=== PATIENT | male | born 1965 | race Caucasian/White ===

== ENCOUNTER 2016-10-01 08:55 | Outpatient (CLI) ==
--- NOTE | 2016-10-08 07:56 | HOLTER ---
PATIENT INFORMATION AND COMMENTS Indications: IRREGULAR HEART RATE __ Patient Medications: ALLOPURINOL __ Pre-procedure Summary: Protocol: Standard Heart Rate Started: 10/01/16913 Minimum: 42 Weight: 216 LBS Ended: 10/02/16913 Maximum: 136 Height: 72" Duration: 17 HRS Average: 64 _ INTERPRETATIONS/OBSERVATIONS: 1. BASIC RHYTHM: SINUS, RATE 42/MINUTE TO 100/MINUTE, AVERAGE 64/MINUTE 2. RARE TO INFREQUENT PAC'S AND PVC'S 3. NO ST-T WAVE CHANGES 4. ACTIVITY LOG NOT MAINTAINED HOLTER MONITORED FOR 17 HOURS [facility]
== END 2016-10-01 08:56 | disposition home or self-care (01) ==
LOC: CAR 08:55
PROVIDERS: ATTEND Nurse Practitioner Family
DX: I49.9 Cardiac arrhythmia, unspecified (principal); I49.3 Ventricular premature depolarization

== ENCOUNTER 2016-12-28 09:57 | Outpatient (CLI) ==
--- NOTE | 2016-12-28 11:01 | DI ---
EXAM: Two views of the left calcaneus. History: Left foot pain. Findings: No acute fracture or dislocation. Minimal enthesiopathy at the insertion of the Achilles tendon. Joint spaces are relatively preserved. Impression: No acute osseous abnormality. Minimal enthesiopathy at the insertion of the Achilles t endon.
== END 2016-12-28 09:58 | disposition home or self-care (01) ==
LOC: RAD 09:57
PROVIDERS: ATTEND Nurse Practitioner Family
DX: M79.672 Pain in left foot (principal); S99.922A Unspecified injury of left foot, initial encounter

== ENCOUNTER 2017-01-01 07:06 | Outpatient (CLI) ==
--- NOTE | 2017-01-01 13:04 | MRI ---
EXAM: MRI of the left lower extremity without contrast COMPARISON: Left calcaneus radiographs 12/28/2016. HISTORY: Hit the heel on a palate 12/22/2016 with pain and swelling. Enthesopathy. TECHNIQUE: Multiplanar noncontrast MR images of the left ankle/hind-foot were acquired using a 1.5 Ana magnet. FINDINGS: Mild degenerative spurring throughout the ankle/hind-foot with most pronounced osteophyte s dorsally at the talonavicular joint. No evidence of an acute fracture or osteomyelitis. The fanny r dome is intact. Small tibiotalar, talonavicular and subtalar joint effusions which are nonspecifi c. There is minimal Achilles tendinosis and peritendinitis without a tendon tear. 2 mm retrocalcaneal spur. 2 mm plantar calcaneal spur with minimal inflammation of the proximal portion of the plantar fascia without fascial rupture. Mild diffuse muscle atrophy. The anterior tibial, extensor hallicus longus and extensor digitorum tendons are intact. Moderate p osterior tibial tendinosis from the level of the medial malleolus through the navicular tuberosity w ith trace tenosynovitis. No full-thickness tendon tear or tendon retraction. There is low-level john ctive marrow edema within the calcaneal tuberosity at the attachment the Achilles tendon without an avulsion fracture. The flexor digitorum and flexor hallicus longus tendons are intact. Mild peroneu s longus/brevis tendinosis and tenosynovitis with thinning/flattening of the peroneus brevis from th e lateral malleolus through the peroneal tubercle related to a partial/split tear. Thickening/scarring of the anterior tibiofibular ligament related to a chronic sprain with intact fi bers identified. No abnormal widening of the syndesmosis. Thinning of the anterior talofibular lig ament related to a a partial tear with scarring with some thin residual intact fibers identified. S purring of the fibular attachment ligament. Sprain/partial tear of the calcaneofibular ligament as well as sprains with scarring of the posterior talofibular and deltoid ligaments. Subcutaneous poonam a most pronounced posteriorly and laterally without a drainable fluid collection. IMPRESSION: 1. Mild Achilles tendinosis and peritendinitis with enthesopathy without a tendon tear. Low-level reactive marrow edema involving the calcaneal attachment of the tendon without an avulsion fracture. 2. Mild changes of plantar fasciitis without fascial rupture. 3. Mild degenerative changes. Small joint effusions which are nonspecific. 4. Moderate posterior tibial tendinosis with minimal tenosynovitis. No full-thickness tendon tear or tendon retraction. Peroneus longus/brevis tendinosis and tenosynovitis with partial/split tear o f the peroneus brevis. 5. Subcutaneous edema most pronounced posteriorly and laterally. 6. Sprain/partial tear of the anterior talofibular and calcaneofibular ligaments. Sprains with sca rring of the posterior talofibular, anterior tibiofibular and deltoid ligaments.
== END 2017-01-01 07:07 | disposition home or self-care (01) ==
LOC: RAD 07:06
PROVIDERS: ATTEND Nurse Practitioner Family
DX: M77.9 Enthesopathy, unspecified (principal); M79.672 Pain in left foot; S86.002A Unspecified injury of left Achilles tendon, initial encounter

== ENCOUNTER 2017-03-26 08:15 | Outpatient (RCR) ==
--- NOTE | 2017-03-04 15:32 | RS.OPPTEV2 ---
Date of Note: 02/28/17 Visit #: 1 Date of Evaluation: 02/28/17 Payer Source: Medicaid Treatment Diagnosis: Left ankle pain, ankle stiffness, weakness History of Condition/Mechanism of Injury:: Patient reports the first part of November 2016, he backed into a pallet and hurt the back of his ankle. States it continued to hurt, which led him to have tests and then was referred to an Orthopaedic, who found the Achilles tendon to be inflammed. He as put in a CAM boot for a month, and has now been sent for Physical Therapy. Prior Level of Function.....Patient was independent with: ADL's, Self Care, Work /Vocation, Caregiving, Ambulation/Mobility, Community Integration/Access Functional Limitations: Standing, Squatting, Ambulation, Community Access/ Integration Current Subjective/complaints:: Patient reports left ankle pain is much better since wearing the boot for a month. States he is not having much pain now. States he is not confident to run. He tried running on a basketball court and could tell that he was not ready. States he has minimal left ankle pain with walking. States he has not iced the ankle in a few weeks. He has also had prostate surgery and is to return to work in a week. He works at [employer] and his job consists of being up and down on his feet. Treatment Side (optional): Left Medical History Surgical History Comments:: Recent prostate surgery due to prostate cancer Smoking Status: Never smoker Hx Home Medications: Ibuprofen, Allopuronol daily Patient's Goals: His goal is to return to his prior level of function. Pain Assessment - Pain Description Pain Location: left ankle Current Pain Intensity: 1/10 Worst Pain Intensity: 9/10 Functional Outcome Measure LE Functional Scale: 52 (52/80=35% impairment) - G Codes & Severity Modifier G Codes & Modifier: NA Source of G Code score: NA Observation - Observation Girth Measurement Lower: Malleoli: left 27.25 cm, right 28 cm. Metheads: left 25 cm, right 26 cm Gait - Gait Pattern Gait Comments: Patient ambulates without an assistive device with decreased stance on the left LE. Demonstrates decreased heelstrike on the left LE. - Left Ankle ROM Left DF with Knee extension: neutral Comments: Left inversion is very limited compared to the right ankle. All else is WFL's - Right Ankle ROM Right DF with Knee extension: 15 degrees - Left Ankle Strength Left Dorsiflexion: 4+ Good + Left Plantar flexion: 4+ Good + Left Eversion: 4 Good Left Inversion: 4 Good Comments: Reports no pain during MMT. - Right Ankle Strength Right Dorsiflexion: 5 Normal Right Plantarflexion: 5 Normal Right Eversion: 5 Normal Right Inversion: 5 Normal Palpation Comments:: Reports no specific area of tenderness reported with palpation throughout the left ankle and foot. Sensation - Sensation Right Lower Extremity: Intact/Normal Left Lower Extremity: Intact/Normal Interventions - Exercise/Activities/Manual Therapy Exercises/Activities: Patient instructed in stretching to plantar fascia, heelcord, and also instructed in alphabet exercises for HEP. Manual Therapy: NA HOME EXERCISE PROGRAM: stretching to plantar fascia, heelcord, and also instructed in alphabet exercises - Charges Total Direct Minutes: 50 mins Total Treatment Time: 50 mins Procedures billed for this date of service:: Yolie Low X 2, Ex Assessment Assessment: Patient presents to therapy with a diagnosis of Achilles tendinitis of the left LE. He demonstrates limited left ankle DF due to decreased flexibility and decreased inversion due to joint hypomobility. Demonstrates weakness throughout the left ankle. He has minimal left ankle pain with walking. He returns to work next week and has to be on his feet most of the time. He will benefit from stretching to improve joint mobility and strengthening for joint stability to return him to his previous level of function. Patient Education: Education of diagnosis, Body/Joint mechanics, Home Exercise Program, Home Safety, Activity Modification, Education of Plan of Care Rehab Potential: Good Short Term Goals Goal #1: Patient independent in basic HEP. Goal to be met by: 03/18/17 Goal #2: Left ankle strength 4+/5 throughout. Goal to be met by: 03/18/17 Goal #3: Left ankle DF to 10 degrees. 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 Goal to be met by: 04/13/17 Goal #2: Score on LE functional scale improved to 70/80. Goal to be met by: 04/13/17 Goal #3: Pt able to ambulate community distances without discomfort. Goal to be met by: 04/13/17 Goal #4: Pt able to return to recreational activities w/o pain or difficulty. Goal to be met by: 04/13/17 Plan - Treatment to be Provided Procedures: Therapeutic Exercises, Therapeutic Activity, Neuromuscular Rehab, Patient Education Modalities: Electrical Stimulation, Ultrasound/Phonophoresis, Cryotherapy, Hot Packs Other:: Modalities if necessary for pain/swelling. - Treatment Plan Frequency: 3 X week Duration: 4 weeks ORDER # VISITS AND/OR THROUGH DATE: 04/13/17 - Treatment Code (1) Ankle pain Qualifiers: Chronicity: acute Laterality: left Qualified Description: Acute left ankle pain Qualifier Code(s): (M25.572) Pain in left ankle and joints of left foot (2) Ankle weakness Comments: Left ankle weakness M62.81 (3) Achilles tendinitis Qualifiers: Laterality: left Qualified Description: Achilles tendinitis of left lower extremity Qualifier Code(s): (M76.62) Achilles tendinitis, left leg
--- NOTE | 2017-03-05 09:44 | RS.OPPTDN ---
Subjective Date of Note: 03/05/17 Date of Evaluation: 02/28/17 Payer Source: Medicaid Treatment Diagnosis: Left ankle pain, ankle stiffness, weakness Current Subjective/complaints:: Patient reports doing initial stretching and pain is a little better. Pain Assessment - Pain Description Pain Location: left ankle Current Pain Intensity: mild Other Comments regarding Pain:: Reports pain is better following HP and EX. - Heat/Cryotherapy Treatment: Hot Pack ([id number] to the left achilles tendon prior to EX. Patient in sitting. ) Interventions - Exercise/Activities/Manual Therapy Exercises/Activities: Patient instructed in stretching to plantar fascia and heelcords. Active ROM in straight planes and circles cw and ccw. Isometric left ankle pf, inv, and eversion, multiple reps. Green theraband for resistive df, inversion, and eversion, multiple reps. Standing gastroc and soleus stretching. Reviewed dx, mechanics, and HEP. Patient given green theraband and copies of new exercises. Total minutes of Exercise: 25mins Manual Therapy: NA HOME EXERCISE PROGRAM: stretching to plantar fascia, heelcord, and also instructed in alphabet exercises - Charges Total Direct Minutes: 25mins Total Treatment Time: 45mins Procedures billed for this date of service:: HP, EX2 Assessment: Patient reponds to HP and stretching EX. Patient appears motivated to EX and progress. Patient Education: Education of diagnosis, Body/Joint mechanics, Home Exercise Program, Activity Modification Patient demonstrates compliance with HEP?: Yes Short Term Goals Goal #1: Patient independent in basic HEP. Goal to be met by: 03/18/17 Progress towards Goal:: Progressing Goal #2: Left ankle strength 4+/5 throughout. Goal to be met by: 03/18/17 Goal #3: Left ankle DF to 10 degrees. Goal to be met by: 03/18/17 Progress towards Goal:: Progressing Senior Care Goals Goal #1: Pt knows HEP and to continue ex's to maintain functional level at D/C. Goal to be met by: 04/13/17 Progress towards goal: Progressing Goal #2: Score on LE functional scale improved to 70/80. Goal to be met by: 04/13/17 Goal #3: Pt able to ambulate community distances without discomfort. Goal to be met by: 04/13/17 Progress towards goal: Progressing Goal #4: Pt able to return to recreational activities w/o pain or difficulty. Goal to be met by: 04/13/17 Plan PLAN OF CARE EXPIRES ON:: 04/13/17 ORDER # VISITS AND/OR THROUGH DATE: 04/13/17 PLAN: Continue Plan of Care (Continue stretching and strengthening exercise to reduce pain and increase functional ambulation.)
--- NOTE | 2017-03-08 10:59 | RS.OPPTDN ---
Subjective Date of Note: 03/08/17 Visit #: 3 Date of Evaluation: 02/28/17 Payer Source: Medicaid Treatment Diagnosis: Left ankle pain, ankle stiffness, weakness Current Subjective/complaints:: Patient reports he has been working all night, and the L foot is aching. Pain Assessment - Pain Description Pain Location: left ankle Pain Description: Dull, Aching Current Pain Intensity: 2/10 - Heat/Cryotherapy Treatment: Hot Pack (20 mins. L plantar surface, prior to exercises) Interventions - Exercise/Activities/Manual Therapy Exercises/Activities: 20 mins. plantar fascia and heelcord stretches.Isometric ankle inversion/eversion.Discussed multiple ways to stretch the plantar fascia in standing and at rest using towel,etc. Total minutes of Exercise: 20 Manual Therapy: NA Total minutes of Manual Therapy: 0 HOME EXERCISE PROGRAM: stretching to plantar fascia, heelcord, and also instructed in alphabet exercises - Charges Total Direct Minutes: 20 Total Treatment Time: 40 Procedures billed for this date of service:: hp,ex 1 Assessment: Patient tolerates stretches well,is tender to palpate the anterior surface of the heel.He is attentive to recommendations of the therapy staff regarding HEP. Patient Education: Education of diagnosis, Body/Joint mechanics, Home Exercise Program, Home Safety, Activity Modification, Education of Plan of Care Patient demonstrates compliance with HEP?: Yes Short Term Goals Goal #1: Patient independent in basic HEP. Goal to be met by: 03/18/17 Progress towards Goal:: Progressing Goal #2: Left ankle strength 4+/5 throughout. Goal to be met by: 03/18/17 Goal #3: Left ankle DF to 10 degrees. 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 Goal to be met by: 04/13/17 Progress towards goal: Progressing Goal #2: Score on LE functional scale improved to 70/80. Goal to be met by: 04/13/17 Goal #3: Pt able to ambulate community distances without discomfort. Goal to be met by: 04/13/17 Progress towards goal: Progressing Goal #4: Pt able to return to recreational activities w/o pain or difficulty. Goal to be met by: 04/13/17 Plan PLAN OF CARE EXPIRES ON:: 04/13/17 ORDER # VISITS AND/OR THROUGH DATE: 04/13/17 PLAN: Continue Plan of Care
--- NOTE | 2017-03-12 09:37 | RS.OPPTDN ---
Subjective Date of Note: 03/12/17 Visit #: 4 Date of Evaluation: 02/28/17 Payer Source: Medicaid Treatment Diagnosis: Left ankle pain, ankle stiffness, weakness Current Subjective/complaints:: Patient reports improvement in left heel pain. States pain continues to be aggravated after being on his feet long hours at work. Reports a reduction in pain following US. Pain Assessment - Pain Description Pain Location: left ankle Pain Description: Dull, Aching Current Pain Intensity: 2/10 - Treatment Modality: Ultrasound Parameters/Method Applied: [id number] at 1.5w/cm2 to the left achilles tendon to the calcaneus and to the plantar surface of the foot prior to EX. Patient Position: Sitting - Heat/Cryotherapy Treatment: Hot Pack ([id number] to the left heel prior to US and EX. Patient in supine. ) Interventions - Exercise/Activities/Manual Therapy Exercises/Activities: 14mins. plantar fascia and heelcord stretches. Isometric ankle dorsiflexion, inversion, and eversion multiple reps. Green theraband for resistive ankle dorsiflexion, inversion, and eversion 3s/10reps each. Reveiwed stretching with towel and 2 position heel cord stretch in standing. Total minutes of Exercise: 14mins Manual Therapy: NA HOME EXERCISE PROGRAM: stretching to plantar fascia, heelcord, and also instructed in alphabet exercises - Charges Total Direct Minutes: 26mins Total Treatment Time: 46mins Procedures billed for this date of service:: HP, US, EX Assessment: Patient responded well to addition of US. Patient Education: Education of diagnosis, Body/Joint mechanics, Home Exercise Program, Activity Modification Patient demonstrates compliance with HEP?: Yes Short Term Goals Goal #1: Patient independent in basic HEP. Goal to be met by: 03/18/17 (50%) Progress towards Goal:: Progressing Goal #2: Left ankle strength 4+/5 throughout. Goal to be met by: 03/18/17 (80%) Progress towards Goal:: Progressing Goal #3: Left ankle DF to 10 degrees. 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 Goal to be met by: 04/13/17 Progress towards goal: Progressing Goal #2: Score on LE functional scale improved to 70/80. Goal to be met by: 04/13/17 Goal #3: Pt able to ambulate community distances without discomfort. Goal to be met by: 04/13/17 Progress towards goal: Progressing Goal #4: Pt able to return to recreational activities w/o pain or difficulty. Goal to be met by: 04/13/17 Plan PLAN OF CARE EXPIRES ON:: 04/13/17 ORDER # VISITS AND/OR THROUGH DATE: 04/13/17 PLAN: Continue Plan of Care
--- NOTE | 2017-03-14 16:03 | RS.OPPTDN ---
Subjective Date of Note: 03/14/17 Visit #: 5 Date of Evaluation: 02/28/17 Payer Source: Medicaid Treatment Diagnosis: Left ankle pain, ankle stiffness, weakness Current Subjective/complaints:: Patient reports left heel pain is doing better. States he worked night before last and pain increased with weight-bearing but was not as bad. Reports US seems to have helped reduce pain. Pain Assessment - Pain Description Pain Location: left ankle Pain Description: Dull, Aching Current Pain Intensity: 2/10 - Treatment Modality: Ultrasound Parameters/Method Applied: [id number] at 1.5w/cm2 to the left distal achilles tendon through to insertion and along the plantar surface prior to EX. Patient Position: Sitting - Heat/Cryotherapy Treatment: Hot Pack ([id number] to the left heel prior to US and EX. patient in sitting. ) Interventions - Exercise/Activities/Manual Therapy Exercises/Activities: 12mins. plantar fascia and heelcord stretches. Isometric ankle dorsiflexion, inversion, and eversion multiple reps. Reveiwed stretching with towel, manual stretching of plantar surface, and 2 position heel cord stretch in standing. Total minutes of Exercise: 12mins Manual Therapy: NA HOME EXERCISE PROGRAM: stretching to plantar fascia, heelcord, and also instructed in alphabet exercises - Charges Total Direct Minutes: 24mins Total Treatment Time: 44mins Procedures billed for this date of service:: HP, US, EX Assessment: Patient reporting a reduction in pain and walking at work without as much increase in pain. Patient Education: Body/Joint mechanics, Home Exercise Program, Activity Modification Patient demonstrates compliance with HEP?: Yes Short Term Goals Goal #1: Patient independent in basic HEP. Goal to be met by: 03/18/17 (60%) Progress towards Goal:: Progressing Goal #2: Left ankle strength 4+/5 throughout. Goal to be met by: 03/18/17 (100%) Progress towards Goal:: Met Goal #3: Left ankle DF to 10 degrees. Goal to be met by: 03/18/17 (70%) Progress towards Goal:: Progressing Long-Term Goals Goal #1: Pt knows HEP and to continue ex's to maintain functional level at D/C. Goal to be met by: 04/13/17 Progress towards goal: Progressing Goal #2: Score on LE functional scale improved to 70/80. Goal to be met by: 04/13/17 Goal #3: Pt able to ambulate community distances without discomfort. Goal to be met by: 04/13/17 Progress towards goal: Progressing Goal #4: Pt able to return to recreational activities w/o pain or difficulty. Goal to be met by: 04/13/17 Plan PLAN OF CARE EXPIRES ON:: 04/13/17 ORDER # VISITS AND/OR THROUGH DATE: 04/13/17 PLAN: Continue Plan of Care
--- NOTE | 2017-03-19 16:11 | RS.OPPTDN ---
Subjective Date of Note: 03/19/17 Visit #: 6 Date of Evaluation: 02/28/17 Payer Source: Medicaid Treatment Diagnosis: Left ankle pain, ankle stiffness, weakness Current Subjective/complaints:: Patient reports left distal achilles/heel pain has been much better the last week at work. States pain at plantar fascia continues to be a problem with walking at work, but also seems to be some better. Pain Assessment - Pain Description Pain Location: left ankle Pain Description: Dull, Aching Current Pain Intensity: 2/10 Worst Pain Intensity: mod at plantar fascia - Treatment Modality: Ultrasound Parameters/Method Applied: [id number] at 1.5w/cm2 to the left distal achillies tendon and to the plantar fascia prior to EX. Patient in sitting. Patient Position: Sitting - Heat/Cryotherapy Treatment: Hot Pack ([id number] to the left heel and distal achilles tendon prior to US and EX. Patient in sitting. ) Interventions - Exercise/Activities/Manual Therapy Exercises/Activities: 12mins. Increased manual stretching of plantar fascia and heelcords. Isometric ankle dorsiflexion, inversion, and eversion multiple reps. Total minutes of Exercise: 12mins Manual Therapy: NA HOME EXERCISE PROGRAM: stretching to plantar fascia, heelcord, and also instructed in alphabet exercises - Charges Total Direct Minutes: 24mins Total Treatment Time: 44mins Procedures billed for this date of service:: HP, US, EX Assessment: Patient responding to treatment and able report reduction in heel cords and heel with increased walking at work. Patient Education: Home Exercise Program Patient demonstrates compliance with HEP?: Yes Short Term Goals Goal #1: Patient independent in basic HEP. Goal to be met by: 03/18/17 (70%) Progress towards Goal:: Progressing Goal #2: Left ankle strength 4+/5 throughout. Goal to be met by: 03/18/17 (100%) Progress towards Goal:: Met Goal #3: Left ankle DF to 10 degrees. Goal to be met by: 03/18/17 (70%) Progress towards Goal:: Progressing Shelter Goals Goal #1: Pt knows HEP and to continue ex's to maintain functional level at D/C. Goal to be met by: 04/13/17 Progress towards goal: Progressing Goal #2: Score on LE functional scale improved to 70/80. Goal to be met by: 04/13/17 Goal #3: Pt able to ambulate community distances without discomfort. Goal to be met by: 04/13/17 Progress towards goal: Progressing Goal #4: Pt able to return to recreational activities w/o pain or difficulty. Goal to be met by: 04/13/17 Plan PLAN OF CARE EXPIRES ON:: 04/13/17 ORDER # VISITS AND/OR THROUGH DATE: 04/13/17 PLAN: Continue Plan of Care
--- NOTE | 2017-03-21 16:27 | RS.OPPTDN ---
Subjective Date of Note: 03/21/17 Visit #: 7 Date of Evaluation: 02/28/17 Payer Source: Medicaid Treatment Diagnosis: Left ankle pain, ankle stiffness, weakness Current Subjective/complaints:: Patient reports continued improvement in left foot and heel pain. States he is doing much better at work. Pain Assessment - Pain Description Pain Location: left ankle Pain Description: Dull, Aching Current Pain Intensity: 2/10 Worst Pain Intensity: 5/10 at end of work shift Other Comments regarding Pain:: States pain was as high as 8-9/10 at end of work shift. - Treatment Modality: Ultrasound Parameters/Method Applied: [id number] at 1.5w/cm2 to the left plantar surface and distal achilles tendon down to insersion. Patient Position: Sitting - Heat/Cryotherapy Treatment: Hot Pack ([id number] to the left foot and ankle prior to US and EX. Patient in sitting. ) Interventions - Exercise/Activities/Manual Therapy Exercises/Activities: 14mins. Manual stretching of plantar fascia and heelcords. Isometric ankle dorsiflexion, inversion, and eversion multiple reps. Increased to blue theraband for resisitve ankle df, inversion, and eversion. Reviewed standing stretch at wall and at step. Total minutes of Exercise: 14mins Manual Therapy: NA HOME EXERCISE PROGRAM: stretching to plantar fascia, heelcord, and also instructed in alphabet exercises. Green and blue theraband for resistive ankle df, inv, and eversion. Isometrics. - Charges Total Direct Minutes: 26mins Total Treatment Time: 46mins Procedures billed for this date of service:: Hp, US, EX Assessment: Patient reporting a reduction in pain when on his feet at work. Patient Education: Body/Joint mechanics, Home Exercise Program, Activity Modification Patient demonstrates compliance with HEP?: Yes Short Term Goals Goal #1: Patient independent in basic HEP. Goal to be met by: 03/18/17 (80%) Progress towards Goal:: Progressing Goal #2: Left ankle strength 4+/5 throughout. Goal to be met by: 03/18/17 (100%) Progress towards Goal:: Met Goal #3: Left ankle DF to 10 degrees. Goal to be met by: 03/18/17 (80%) Progress towards Goal:: Progressing Custodial Goals Goal #1: Pt knows HEP and to continue ex's to maintain functional level at D/C. Goal to be met by: 04/13/17 Progress towards goal: Progressing Goal #2: Score on LE functional scale improved to 70/80. Goal to be met by: 04/13/17 Goal #3: Pt able to ambulate community distances without discomfort. Goal to be met by: 04/13/17 Progress towards goal: Progressing Goal #4: Pt able to return to recreational activities w/o pain or difficulty. Goal to be met by: 04/13/17 Plan PLAN OF CARE EXPIRES ON:: 04/13/17 ORDER # VISITS AND/OR THROUGH DATE: 04/13/17 PLAN: Continue Plan of Care
--- NOTE | 2017-03-25 10:19 | RS.OPPTDN ---
Subjective Date of Note: 03/25/17 Visit #: 8 Date of Evaluation: 02/28/17 Payer Source: Medicaid Treatment Diagnosis: Left ankle pain, ankle stiffness, weakness Current Subjective/complaints:: Patient reports continued progress with left heel and foot pain. Reports able to do more walking at work without aggravating foot pain. Reports soreness along the anterior tibialis, but pain at the insertion of the achilles tendon has nearly resolved. Pain Assessment - Pain Description Pain Location: left ankle Pain Description: Dull, Aching Current Pain Intensity: 2/10 - Treatment Modality: Ultrasound Parameters/Method Applied: [id number] to the left foot plantar surface, along distal achilles tendon, and the mid anterior tibialis prior to EX. Patient Position: Sitting - Heat/Cryotherapy Treatment: Hot Pack ([id number] to the left heel prior to US. Patient in sitting. ) Interventions - Exercise/Activities/Manual Therapy Exercises/Activities: 12mins. Manual stretching of plantar fascia and heelcords. Isometric ankle dorsiflexion, inversion, and eversion multiple reps. Reviewed HEP, standing stretches and advised patient to increase ismetric ankle inversion. Total minutes of Exercise: 12mins Manual Therapy: NA HOME EXERCISE PROGRAM: stretching to plantar fascia, heelcord, and also instructed in alphabet exercises. Green and blue theraband for resistive ankle df, inv, and eversion. Isometrics. - Objective Findings Observations,measurements,etc.: Left ankle inversion at 4/5 MMT. Left ankle df, pf, eversion 4+ to 5/5 MMT. Active df 10 degrees or slightly better. - Charges Total Direct Minutes: 24mins Total Treatment Time: 44mins Procedures billed for this date of service:: HP, US, EX Assessment: Patient progressing with exercise and reporting less pain with walking at work. Patient will benefit from progressive exercise and strengthening of left ankle inversion. Patient Education: Body/Joint mechanics, Home Exercise Program Patient demonstrates compliance with HEP?: Yes Short Term Goals Goal #1: Patient independent in basic HEP. Goal to be met by: 03/18/17 (80%) Progress towards Goal:: Progressing Goal #2: Left ankle strength 4+/5 throughout. Goal to be met by: 03/18/17 (100%) Progress towards Goal:: Met Goal #3: Left ankle DF to 10 degrees. Goal to be met by: 03/18/17 (100%) Progress towards Goal:: Met Wind Plant Manager Goals Goal #1: Pt knows HEP and to continue ex's to maintain functional level at D/C. Goal to be met by: 04/13/17 Progress towards goal: Progressing Goal #2: Score on LE functional scale improved to 70/80. Goal to be met by: 04/13/17 Goal #3: Pt able to ambulate community distances without discomfort. Goal to be met by: 04/13/17 Progress towards goal: Progressing Goal #4: Pt able to return to recreational activities w/o pain or difficulty. Goal to be met by: 04/13/17 Plan PLAN OF CARE EXPIRES ON:: 04/13/17 ORDER # VISITS AND/OR THROUGH DATE: 04/13/17 PLAN: Continue Plan of Care
--- NOTE | 2017-03-26 11:57 | RS.OPPTDN ---
Subjective Date of Note: 03/26/17 Visit #: 9 Date of Evaluation: 02/28/17 Payer Source: Medicaid Treatment Diagnosis: Left ankle pain, ankle stiffness, weakness Current Subjective/complaints:: Eduardo reports he did well with walking at work last night. States he was busy and was able to nearly run at one point and did not have an increase in left heel and foot pain. Pain Assessment - Pain Description Pain Location: left ankle Pain Description: Dull, Aching Current Pain Intensity: 1-2/10 Other Comments regarding Pain:: No pain following treatment - Treatment Modality: Ultrasound Parameters/Method Applied: [id number] at 1.5w/cm2 to the left heel, achilles tendon , and plantar surface. Patient Position: Sitting - Heat/Cryotherapy Treatment: Hot Pack ([id number] to the left plantar surface and heel prior to US. Patient in sitting. ) Interventions - Exercise/Activities/Manual Therapy Exercises/Activities: 14mins. Manual stretching of plantar fascia and heelcords. Isometric ankle dorsiflexion, inversion, and eversion multiple reps. Increased to black theraband for resisitive ankle df, inversion, and eversion. Total minutes of Exercise: 14mins Manual Therapy: NA HOME EXERCISE PROGRAM: stretching to plantar fascia, heelcord, and also instructed in alphabet exercises. Green and blue theraband for resistive ankle df, inv, and eversion. Isometrics. - Charges Total Direct Minutes: 26mins Total Treatment Time: 41mins Procedures billed for this date of service:: HP, US, EX Assessment: Patient progressing well with strengthening and with ability to perform work activities without increased pain. Patient Education: Home Exercise Program Comments: Reviewed HEP and patient given black theraband for progressiong of resistive exercises. Patient demonstrates compliance with HEP?: Yes Short Term Goals Goal #1: Patient independent in basic HEP. Goal to be met by: 03/18/17 (100%) Progress towards Goal:: Met Goal #2: Left ankle strength 4+/5 throughout. Goal to be met by: 03/18/17 (100%) Progress towards Goal:: Met Goal #3: Left ankle DF to 10 degrees. Goal to be met by: 03/18/17 (100%) Progress towards Goal:: Met Shelter Goals Goal #1: Pt knows HEP and to continue ex's to maintain functional level at D/C. Goal to be met by: 04/13/17 Progress towards goal: Progressing Goal #2: Score on LE functional scale improved to 70/80. Goal to be met by: 04/13/17 Goal #3: Pt able to ambulate community distances without discomfort. Goal to be met by: 04/13/17 (75%) Progress towards goal: Progressing Goal #4: Pt able to return to recreational activities w/o pain or difficulty. Goal to be met by: 04/13/17 Progress towards goal: No Change Plan PLAN OF CARE EXPIRES ON:: 04/13/17 ORDER # VISITS AND/OR THROUGH DATE: 04/13/17 PLAN: Continue Plan of Care (Continue modalites and exercise to reduce pain and increase functional activity level.)
== END 2017-03-29 ==
PROVIDERS: ATTEND Podiatrist
DX: M76.62 Achilles tendinitis, left leg (principal)

== ENCOUNTER 2017-04-03 08:15 | Outpatient (RCR) ==
--- NOTE | 2017-04-01 12:05 | RS.OPPTDN ---
Subjective Date of Note: 04/01/17 Visit #: 10 Date of Evaluation: 02/28/17 Payer Source: Medicaid Treatment Diagnosis: Left ankle pain, ankle stiffness, weakness Current Subjective/complaints:: Patient reports an increase in discomfrot at the end of his midnight shift this morning. States overall, left foot pain is much better. Denies dicomfort at the distal achilles tendon, which was his c/c on Eval. Pain Assessment - Pain Description Pain Location: left ankle Current Pain Intensity: 1-2/10 - Treatment Modality: Ultrasound Parameters/Method Applied: [id number] at 1.5w/cm2 to the left foot plantar surface and the distal kenneth tendon region, prior to EX. Patient in sitting. Patient Position: Sitting - Heat/Cryotherapy Treatment: Hot Pack ([id number] to the left foot prior to US and EX. Patient in sitting. ) Interventions - Exercise/Activities/Manual Therapy Exercises/Activities: 12mins. Manual stretching of plantar fascia and heelcords. Isometric ankle dorsiflexion, inversion, and eversion multiple reps. Patient using black theraband for resisitive ankle df, inversion, and eversion with HEP. Total minutes of Exercise: 12mins Manual Therapy: NA HOME EXERCISE PROGRAM: stretching to plantar fascia, heelcord, and also instructed in alphabet exercises. Green and blue theraband for resistive ankle df, inv, and eversion. Isometrics. - Charges Total Direct Minutes: 24mins Total Treatment Time: 39mins Procedures billed for this date of service:: HP, US, EX Assessment: Patient progressing well with ability to be on his feet an entire midnight shift at work with min to no increase in discomfort. Patient Education: Body/Joint mechanics, Home Exercise Program Patient demonstrates compliance with HEP?: Yes Short Term Goals Goal #1: Patient independent in basic HEP. Goal to be met by: 03/18/17 (100%) Progress towards Goal:: Met Goal #2: Left ankle strength 4+/5 throughout. Goal to be met by: 03/18/17 (100%) Progress towards Goal:: Met Goal #3: Left ankle DF to 10 degrees. Goal to be met by: 03/18/17 (100%) Progress towards Goal:: Met Custodial Goals Goal #1: Pt knows HEP and to continue ex's to maintain functional level at D/C. Goal to be met by: 04/13/17 Progress towards goal: Progressing Goal #2: Score on LE functional scale improved to 70/80. Goal to be met by: 04/13/17 Goal #3: Pt able to ambulate community distances without discomfort. Goal to be met by: 04/13/17 (75%) Progress towards goal: Progressing Goal #4: Pt able to return to recreational activities w/o pain or difficulty. Goal to be met by: 04/13/17 Progress towards goal: No Change Plan PLAN OF CARE EXPIRES ON:: 04/13/17 ORDER # VISITS AND/OR THROUGH DATE: 04/13/17 PLAN: Continue Plan of Care (Continue this week to reduce pain and increase functional activity level.)
--- NOTE | 2017-04-03 09:29 | RS.OPPTDN ---
Subjective Date of Note: 04/03/17 Visit #: 11 Date of Evaluation: 02/28/17 Payer Source: Medicaid Treatment Diagnosis: Left ankle pain, ankle stiffness, weakness Current Subjective/complaints:: Patient reports a slight flair-up in left foot pain, but states he was on his feet approx 9 hours last night at work. States that overall he has progressed well and he is now able to work a full shift, which he was unable to do prior to treatment. Pain Assessment - Pain Description Pain Location: left ankle Current Pain Intensity: 1/10 Other Comments regarding Pain:: No pain at left ankle or heel. Pain mainly at left foot plantar surface. - Treatment Modality: Ultrasound Parameters/Method Applied: [id number] at 1.5w/cm2 to the left heel and along achilles tendon, with focus on the plantar surface. Patient Position: Sitting - Heat/Cryotherapy Treatment: Hot Pack ([id number] to the left foot and ankle prior to US and EX. Patient in sitting. ) Interventions - Exercise/Activities/Manual Therapy Exercises/Activities: 14mins. Manual stretching of plantar fascia and heelcords. Isometric ankle dorsiflexion, inversion, and eversion multiple reps. Reviewed all HEP including black theraband for resisitive ankle ROM, alternate positions for stretching, and benefits of good shoes in home as well as in community. Total minutes of Exercise: 14mins Manual Therapy: NA HOME EXERCISE PROGRAM: stretching to plantar fascia, heelcord, and also instructed in alphabet exercises. Green and blue theraband for resistive ankle df, inv, and eversion. Isometrics. - Objective Findings Observations,measurements,etc.: Patient demos active left df to 20 degrees. MMT with pf, df, and eversion 5/5, and inversion 4+ to 5/5. - Charges Total Direct Minutes: 26mins Total Treatment Time: 46mins Procedures billed for this date of service:: HP, US, EX Assessment: Patient has progressed well and benefitted from treatment. Patient has met 5 of 7 treatment goals. He reports a significant reduction in left foot and ankle pain which has increased his ability to work a full shift at work. Patient is required to be on his feet for most of his shift and was unable to tolerate this prior to treatment. Patient Education: Home Exercise Program, Education of Plan of Care Comments: Reveiwed and completed all patient education of dx, safety, and HEP. Patient demonstrates compliance with HEP?: Yes Short Term Goals Goal #1: Patient independent in basic HEP. Goal to be met by: 03/18/17 (100%) Progress towards Goal:: Met Goal #2: Left ankle strength 4+/5 throughout. Goal to be met by: 03/18/17 (100%) Progress towards Goal:: Met Goal #3: Left ankle DF to 10 degrees. Goal to be met by: 03/18/17 (100%) Progress towards Goal:: Met Program Manager Environmental Planning Goals Goal #1: Pt knows HEP and to continue ex's to maintain functional level at D/C. Goal to be met by: 04/13/17 (100%) Progress towards goal: Met Goal #2: Score on LE functional scale improved to 70/80. Goal to be met by: 04/13/17 (100%) Progress towards goal: Met Goal #3: Pt able to ambulate community distances without discomfort. Goal to be met by: 04/13/17 (80%) Progress towards goal: Progressing Goal #4: Pt able to return to recreational activities w/o pain or difficulty. Goal to be met by: 04/13/17 (75%) Progress towards goal: Progressing Plan PLAN OF CARE EXPIRES ON:: 04/13/17 ORDER # VISITS AND/OR THROUGH DATE: 04/13/17 PLAN: Plan for Discharge (Discharge with HEP as patient has progressed well, pain has nearly resolved, and he has returned to full duty at work. Patient will continue HEP.)
--- NOTE | 2017-04-03 09:32 | RS.QUICKDC ---
Discharge from PT Date of Discharge: 04/03/17 Number of Visits: 11 Reason for Discharge: Patient progressed well and benefitted from treatment. He met 5 of 7 treatment goals and was independent with HEP. HE demos increased strength and ROM. He reports ability to return to all work duties with little to no increase in left foot and ankle pain. Discharge at this time with HEP.
== END 2017-04-29 ==
PROVIDERS: ATTEND Podiatrist
DX: M76.62 Achilles tendinitis, left leg (principal)

== ENCOUNTER 2017-10-22 08:01 | Outpatient (CLI) | END 2017-10-22 08:02 | disposition home or self-care (01) | LOC: LAB 08:01 | PROVIDERS: ATTEND Nurse Practitioner Family | DX: I49.3 Ventricular premature depolarization (principal); M1A.0720 Idiopathic chronic gout, left ankle and foot, without tophus (tophi) | CPT/HCPCS: 36415; 80053; 80061; 84443; 85025 ==

== ENCOUNTER 2017-11-22 10:25 | Outpatient (CLI) | END 2017-11-22 10:26 | disposition home or self-care (01) | LOC: RHC-LAB 10:25 | PROVIDERS: ATTEND Nurse Practitioner Family | DX: D72.819 Decreased white blood cell count, unspecified (principal) | CPT/HCPCS: 36415; 85025 ==

== ENCOUNTER 2018-02-21 11:44 | Outpatient (CLI) | END 2018-02-21 11:45 | disposition home or self-care (01) | LOC: RHC-LAB 11:44 | PROVIDERS: ATTEND Nurse Practitioner Family | DX: D72.819 Decreased white blood cell count, unspecified (principal) | CPT/HCPCS: 36415; 85025 ==

== ENCOUNTER 2018-07-24 10:28 | Outpatient (CLI) | END 2018-07-24 10:29 | disposition home or self-care (01) | LOC: RHC-LAB 10:28 | PROVIDERS: ATTEND Nurse Practitioner Family | DX: M19.041 Primary osteoarthritis, right hand (principal); M1A.0720 Idiopathic chronic gout, left ankle and foot, without tophus (tophi); I49.9 Cardiac arrhythmia, unspecified | CPT/HCPCS: 36415; 80053; 80061; 85025 ==

== ENCOUNTER 2019-01-21 08:48 | Outpatient (CLI) | END 2019-01-21 08:49 | disposition home or self-care (01) | LOC: RHC-LAB 08:48 | PROVIDERS: ATTEND Nurse Practitioner Family | DX: M1A.0720 Idiopathic chronic gout, left ankle and foot, without tophus (tophi) (principal); M19.072 Primary osteoarthritis, left ankle and foot | CPT/HCPCS: 36415; 80053; 80061; 85025 ==